=== PATIENT | female | born 2000 | race Caucasian/White ===

== ENCOUNTER 2024-09-08 15:41 | Inpatient (IN) | payer MEDICARE, MEDICAID ==
[~2024-09-08] VITALS: Ht 154.9 cm; Wt 45.0 kg
[2024-09-08] MEDS ORDERED: RISP0.5T80 PO ×2 (16:01→19:27)
[2024-09-08 16:30] LABS: PLATELET COUNT (AUTO) 120 K/uL (150-450); RED BLOOD CELL COUNT(AUTO) 4.64 MIL/uL (4.00-5.20); RED CELL DISTRIBUTION WIDTH 13.0 % (11.5-14.5); WHITE BLOOD COUNT (AUTO) 5.2 K/uL (4.5-11.0)
[2024-09-08 16:38] LABS: COVID AG,FIA SOURCE NASAL SWAB
[2024-09-08 16:40] LABS: CALCIUM, TOTAL 9.0 mg/dL (8.8-10.5); CREATININE 0.67 mg/dL (0.60-1.30); GLOMERULAR FILTR. RATE CALC > 60 mL/min (>60); GLUCOSE,RANDOM 94 mg/dL (70-110); SODIUM SERUM 137 mmol/L (136-145); UREA NITROGEN, BLOOD 7 mg/dL (7-18)
[2024-09-08 17:05] LABS: SARS-COV2 (COVID) ANTIGEN,FIA Negative (Negative)
[2024-09-08 17:11] VITALS: O2SAT 98
[2024-09-08] MEDS ORDERED: RISP-31 PO (17:19)
[2024-09-08] MEDS: LORazepam 2 MG/ML VIAL IM ONE (19:42)
[2024-09-09 01:39] VITALS: BP 90/63; PULSE 63; RESP 18; TEMP 97.5; O2SAT 100
[2024-09-09] MEDS ORDERED: PETROLATUM,WHITE 28 GM JELLY TP PRN (08:45)
[2024-09-09] MEDS ORDERED: MAG HYDROX/ALUMINUM HYD/SIMETH ES 30 ML SUSPENSION UDCUP PO PRN (08:45)
[2024-09-09] MEDS ORDERED: OMEPRAZOLE 20 MG CAPSULE PO PRN (08:45)
[2024-09-09] MEDS ORDERED: ALBUTEROL SULFATE HFA 90 MCG/PUFF 8 GM INHALER IH PRN (08:45)
[2024-09-09] MEDS ORDERED: BENZOCAINE/MENTHOL [CEPACOL] LOZENGE PO PRN (08:45)
[2024-09-09] MEDS ORDERED: LOPERAMIDE HCL 2 MG CAPSULE PO PRN (08:45)
[2024-09-09] MEDS ORDERED: ACETAMINOPHEN 325 MG TABLET PO PRN (08:45)
[2024-09-09] MEDS ORDERED: BACITRACIN 28 GM OINTMENT TP PRN (08:45)
[2024-09-09] MEDS ORDERED: MAGNESIUM HYDROXIDE SUSPENSION 30 ML UDCUP PO PRN (08:45)
[2024-09-09] MEDS ORDERED: DOCUSATE SODIUM 100 MG CAPSULE PO PRN (08:45)
[2024-09-09] MEDS ORDERED: ONDANSETRON 4 MG TABLET PO PRN (08:45)
[2024-09-09] MEDS ORDERED: IBUPROFEN 600 MG TABLET PO PRN (08:45)
[2024-09-09 17:14] VITALS: BP 112/68; PULSE 74; RESP 18; TEMP 98.1; O2SAT 100
[2024-09-09] MEDS: ZOLPIDEM TARTRATE 10 MG TABLET PO PRN (21:17)
[2024-09-09 21:21] VITALS: BP 122/91; PULSE 91; RESP 18; TEMP 98.2; O2SAT 100
[2024-09-10 10:09] VITALS: BP 101/71; PULSE 110; RESP 18; TEMP 97.3; O2SAT 100
[2024-09-10 21:24] VITALS: BP 109/74; PULSE 103; RESP 18; TEMP 98.4; O2SAT 100
[2024-09-11] MEDS: LORazepam 2 MG/ML VIAL IM ONE (09:33)
[2024-09-11 10:30] VITALS: BP 90/70; PULSE 69; RESP 18; TEMP 97.5; O2SAT 97
[2024-09-11 20:27] VITALS: BP 128/80; PULSE 100; RESP 16; TEMP 98.3; O2SAT 98
[2024-09-12 06:56] LABS: APPEARANCE,URINE CLEAR (CLEAR); GLUCOSE, URINE (UA) NEGATIVE (NEGATIVE); LEUKOCYTE ESTERASE ,URINE NEGATIVE (NEGATIVE); NITRATE,URINE NEGATIVE (NEGATIVE); OCCULT BLOOD,URINE NEGATIVE (NEGATIVE); PH,URINE DRUG SCREEN 7.0 (5.0-8.0); SPECIFIC GRAVITIY, URINE 1.019 (1.003-1.030)
[2024-09-12 06:57] LABS: ALCOHOL, URINE DRUG SCREEN NEGATIVE (NEGATIVE); AMPHET/METH SCREEN,URINE NEGATIVE (NEGATIVE); BARBITURATE SCREEN, URINE NEGATIVE (NEGATIVE); CANNABINOID SCREEN,URINE NEGATIVE (NEGATIVE); COCAINE SCREEN,URINE NEGATIVE (NEGATIVE); METHADONE SCREEN, URINE NEGATIVE (NEGATIVE)
[2024-09-12 08:30] VITALS: BP 105/79; PULSE 93; RESP 16; TEMP 97.7; O2SAT 95
[2024-09-12 21:14] VITALS: BP 114/84; PULSE 100; RESP 18; TEMP 97.6; O2SAT 100
[2024-09-13 10:11] VITALS: BP 105/84; PULSE 93; RESP 17; TEMP 97.6; O2SAT 98
[2024-09-13 21:51] VITALS: BP 106/70; PULSE 98; RESP 16; TEMP 97.7; O2SAT 96
[2024-09-14 10:54] VITALS: BP 107/73; PULSE 85; RESP 16; TEMP 97.9; O2SAT 98
[2024-09-14 18:50] LABS: GLUCOMETER DEV NAME(LOC) 3E.C; GLUCOSE,POINT OF CARE 140 MG/DL (70-110)
[2024-09-14 21:54] VITALS: BP 119/68; PULSE 100; RESP 16; TEMP 97.6; O2SAT 98
[2024-09-15 13:53] VITALS: BP 108/75; PULSE 102; RESP 18; TEMP 98.1; O2SAT 99
[2024-09-15] MEDS: MULTIVITAMINS WITH IRON TABLET PO SCH (16:53)
[2024-09-15 21:33] VITALS: BP 123/70; PULSE 94; RESP 18; TEMP 98.7
[2024-09-16 09:54] VITALS: BP 125/94; PULSE 100; RESP 18; TEMP 97.9; O2SAT 98
[2024-09-16 22:53] VITALS: BP 106/69; PULSE 105; RESP 18; TEMP 97.7; O2SAT 98
[2024-09-17 13:18] VITALS: BP 114/81; PULSE 114; RESP 19; TEMP 98.1; O2SAT 99
[2024-09-17] MEDS: DIVALPROEX SODIUM 500 MG DR TABLET PO SCH (15:04)
[2024-09-17 22:35] VITALS: BP 132/86; PULSE 97; RESP 18; TEMP 98.1
[2024-09-18 11:05] VITALS: BP 119/86; PULSE 98; RESP 18; TEMP 97.9
[2024-09-18 21:53] VITALS: BP 117/77; PULSE 108; RESP 18; TEMP 98.6; O2SAT 100
[2024-09-19 08:30] VITALS: BP 111/74; PULSE 99; RESP 18; TEMP 98.2; O2SAT 96
[2024-09-19 23:41] VITALS: BP 130/78; PULSE 96; RESP 18; TEMP 98.7; O2SAT 98
[2024-09-20 02:15] VITALS: BP 118/84; PULSE 110; RESP 18; O2SAT 98
[2024-09-20 04:12] VITALS: BP 124/77; PULSE 117; RESP 18; O2SAT 98
[2024-09-20 09:10] VITALS: BP 93/59; PULSE 88; RESP 17; TEMP 98; O2SAT 98
[2024-09-20] MEDS: RisperiDONE ER SUSPENSION 250 MG/0.7 ML PRE-FILLED SYRINGE SQ ONE (14:40)
[2024-09-20] MEDS: DIVALPROEX SODIUM 125 MG DR TABLET PO SCH (20:21)
[2024-09-20 20:42] VITALS: BP 126/95; PULSE 85; RESP 16; TEMP 97.8; O2SAT 100
[2024-09-21 08:41] VITALS: BP 101/67; PULSE 120; RESP 18; TEMP 97.2; O2SAT 99
[2024-09-21] MEDS: BENZTROPINE MESYLATE 1 MG TABLET PO SCH (18:08)
[2024-09-21 20:49] VITALS: BP 155/72; PULSE 125; RESP 18; TEMP 97.7; O2SAT 98
[2024-09-22 10:16] VITALS: BP 121/82; PULSE 100; RESP 18; TEMP 98.2; O2SAT 98
[2024-09-22 23:30] VITALS: RESP 18
[2024-09-23 11:07] VITALS: BP 112/73; PULSE 99; RESP 19; TEMP 97.6; O2SAT 98
[2024-09-23 20:00] VITALS: BP 103/71; PULSE 94; RESP 18; TEMP 98.2; O2SAT 99
[2024-09-24 09:55] VITALS: BP 110/80; PULSE 102; RESP 17; O2SAT 100
[2024-09-24 23:14] VITALS: RESP 17; TEMP 98.1
[2024-09-25 09:47] VITALS: BP 105/75; PULSE 80; RESP 20; TEMP 97.9; O2SAT 98
[2024-09-25] MEDS ORDERED: RISP-31 PO (13:17)
[2024-09-25] MEDS ORDERED: BENZ-247 PO (13:18)
[2024-09-25] MEDS ORDERED: DIVA125T32 PO (13:19)
[2024-11-18] MEDS ORDERED: RisperiDONE ER SUSPENSION 250 MG/0.7 ML PRE-FILLED SYRINGE SQ SCH (09:00)
== END 2024-09-25 18:41 | disposition home or self-care (01) | DRG 885 ==
LOC: EMS 15:41 → 3EX 23:25 → 3EC 09-09 09:40
PROVIDERS: ADMIT Psychiatry & Neurology Psychiatry; ATTEND Psychiatry & Neurology Psychiatry
PROC: GZHZZZZ Group Psychotherapy (ICD-10-PCS; principal; 2024-09-09)
PROC: GZ52ZZZ Individual Psychotherapy, Cognitive (ICD-10-PCS; 2024-09-14)
DX: F20.0 Paranoid schizophrenia (principal); G47.00 Insomnia, unspecified; F41.9 Anxiety disorder, unspecified; K59.00 Constipation, unspecified; Z20.822 Contact with and (suspected) exposure to COVID-19; Z79.899 Other long term (current) drug therapy
CPT/HCPCS: 80048; 80164; 80307; 81003; 82962; 84703; 85025; 96372; 99285; G0378; G0480; J1200; J1630; J2060